=== PATIENT | female | born 1975 | race Caucasian/White ===

== ENCOUNTER → 2018-02-22 | Outpatient (CLI) | payer BC ==
[~2018-02-22] MED LIST: ASPECOTC PO; HYDR-5688 PO; ONDA4TAB10 SL
== END | disposition home or self-care (01) ==
LOC: C.RDSM 09:15
PROVIDERS: ATTEND Physical Medicine & Rehabilitation Sports Medicine
DX: Z98.890 Other specified postprocedural states (principal)